=== PATIENT | female | born 1980 | race Caucasian/White ===

== ENCOUNTER 2017-12-20 17:54 | Emergency (ER) | payer OTHER ==
[~2017-12-20] VITALS: Ht 170.2 cm; Wt 104.3 kg
[~2017-12-20 17:54] MED LIST: ACYC400 PO; ALBU90OI INH; AMOCLA875 PO; BUDE6HFA INH; CEPH500 PO; CYCL10 PO; DIPATR PO; FLUO10 PO; Flonase 0.05% N16 GM; HYDACE5 PO; IBUP800 PO; LEVFLO500 PO; LOPE2C; LORA1 PO; MECL12.5 PO; Macrobid 100 M100 MG PO; OXYACE5T PO; PARO25; PROM25 PO; PROZAC 20 MG PO; PSEU120ER PO; Prednisone20 MG PO; Sudogest60 MG PO; TRAM50 PO; Zithromax250 MG PO; Zofran Odt4 MG SL
== END 2017-12-20 18:50 | disposition home or self-care (01) ==
LOC: ER 17:54
DX: M54.2 Cervicalgia (principal); Z91.048 Other nonmedicinal substance allergy status; Z90.710 Acquired absence of both cervix and uterus; Z90.89 Acquired absence of other organs
CPT/HCPCS: 99282

== ENCOUNTER 2018-03-21 19:52 | Emergency (ER) | payer OTHER ==
[~2018-03-21] VITALS: Ht 170.2 cm; Wt 104.3 kg
[2018-03-21 20:17] LABS: BASOPHILS ABSOLUTE AUTO 0.08 K/mm3 (0.00-0.23); BASOPHILS PERCENT AUTO 1 % (0-2); EOSINOPHILS ABSOLUTE AUTO 0.14 K/mm3 (0.00-0.68); EOSINOPHILS PERCENT AUTO 1 % (0-6); Hematocrit 42.7 % (33.0-51.0); Hemoglobin 13.8 g/dL (11.5-16.0); IMMATURE GRAN ABSOLUTE AUTO 0.02 K/mm3 (0.00-0.10); IMMATURE GRAN PERCENT AUTO 0 % (0-1); LYMPHOCYTES ABSOLUTE AUTO 3.86 K/mm3 (0.84-5.20); LYMPHOCYTES PERCENT AUTO 34 % (21-46); MONOCYTES ABSOLUTE AUTO 0.62 K/mm3 (0.16-1.47); MONOCYTES PERCENT AUTO 5 % (4-13); Mean Corpuscular HGB 29.1 pg (26.0-34.0); Mean Corpuscular HGB Conc 32.3 g/dL (31.5-36.5); Mean Corpuscular Volume 90 fL (80-100); Mean Platelet Volume 9.3 fL (9.1-12.4); NEUTROPHILS ABSOLUTE AUTO 6.78 K/mm3 (1.96-9.15); NEUTROPHILS PERCENT AUTO 59 % (41-73); Platelet Count 335 K/mm3 (150-400); RDW Coefficient Variation 12.5 % (11.7-14.2); RDW Standard Deviation 41.1 fL (35.1-46.3); Red Blood Cell Count 4.75 M/mm3 (3.80-5.20)
[2018-03-21 20:59] LABS: Alanine Aminotransfer (ALT/SGP 20 U/L (12-78); Albumin, Blood 3.2 g/dL (3.4-5.0); Albumin/Globulin Ratio 0.8 (0.8-1.8); Alk Phos 64 U/L (50-136); Anion Gap 6 mmol/L (6-16); Aspartate Aminotrans (AST/SGOT 18 U/L (12-37); Bilirubin, Total 0.4 mg/dL (0.1-1.0); Blood Urea Nitrogen 9 mg/dL (8-24); Bun/Creatinine Ratio 10.7 (12.0-20.0); CO2, Blood 25 mmol/L (21-32); Calcium, Blood 8.4 mg/dL (8.5-10.1); Chloride, Blood 111 mmol/L (98-108); Creatinine, Blood 0.84 mg/dL (0.40-1.00); Globulin, Blood 3.8 g/dL (2.2-4.0); Glomerular Filtration Rate >60 (60-); Glucose, Blood 70 mg/dL (70-99); Potassium, Blood 3.5 mmol/L (3.5-5.5); Sodium, Blood 142 mmol/L (136-145); Troponin I <0.015 ng/mL (0.000-0.040)
[2018-03-21] MEDS ORDERED: Protonix40 MG PO (21:49)
== END 2018-03-22 01:38 | disposition home or self-care (01) ==
LOC: ER 19:52
PROVIDERS: Emergency Medicine
DX: R07.89 Other chest pain (principal); Z91.048 Other nonmedicinal substance allergy status; Z79.899 Other long term (current) drug therapy; Z87.01 Personal history of pneumonia (recurrent)
CPT/HCPCS: 36415; 74177; 80053; 81000; 83690; 84484; 85025; 93005; 93010; 96374; 96375; 99284; J2060; J3010; Q9967

== ENCOUNTER 2019-01-09 17:09 | Emergency (ER) | payer OTHER ==
[~2019-01-09] VITALS: Ht 170.2 cm; Wt 106.6 kg
[~2019-01-09 17:09] MED LIST changes: +Protonix40 MG PO
[2019-01-09] MEDS ORDERED: Norco 5-325 Ta1 EACH PO (18:32)
== END 2019-01-09 18:45 | disposition home or self-care (01) ==
LOC: ER 17:09
DX: R51 Headache (principal); J45.909 Unspecified asthma, uncomplicated; Z87.01 Personal history of pneumonia (recurrent)
CPT/HCPCS: 70450; 99284-25

== ENCOUNTER 2019-12-23 21:06 | Emergency (ER) | payer OTHER ==
[~2019-12-23] VITALS: Ht 170.2 cm; Wt 104.3 kg
[~2019-12-23 21:06] MED LIST changes: +Norco 5-325 Ta1 EACH PO
[2019-12-24] MEDS ORDERED: Excedrin Extra1 EACH (00:15)
== END 2019-12-24 02:36 | disposition home or self-care (01) ==
LOC: ER 21:06
DX: R51 Headache (principal); Z91.018 Allergy to other foods; Z79.899 Other long term (current) drug therapy
CPT/HCPCS: 96374; 96375; 99283; J1200; J1885; J2765; J7030

== ENCOUNTER → 2021-12-30 | Outpatient (CLI) | payer BC, OTHER ==
[~2021-12-30] MED LIST changes: +ALBU2.5V5 INH; +DEXA6 PO; +Excedrin Extra1 EACH; +PRED20 PO; +Pulmicort Fle180 MCG INH; +Ventolin/Prove6.7 GM
[2021-12-30 18:49] LABS: BASOPHILS ABSOLUTE AUTO 0.07 K/mm3 (0.00-0.23); BASOPHILS PERCENT AUTO 1 % (0-2); EOSINOPHILS ABSOLUTE AUTO 0.13 K/mm3 (0.00-0.68); EOSINOPHILS PERCENT AUTO 1 % (0-6); Hematocrit 42.6 % (33.0-51.0); Hemoglobin 14.2 g/dL (11.5-16.0); IMMATURE GRAN ABSOLUTE AUTO 0.03 K/mm3 (0.00-0.10); IMMATURE GRAN PERCENT AUTO 0 % (0-1); LYMPHOCYTES ABSOLUTE AUTO 2.96 K/mm3 (0.84-5.20); LYMPHOCYTES PERCENT AUTO 29 % (21-46); MONOCYTES ABSOLUTE AUTO 0.61 K/mm3 (0.16-1.47); MONOCYTES PERCENT AUTO 6 % (4-13); Mean Corpuscular HGB 29.3 pg (26.0-34.0); Mean Corpuscular HGB Conc 33.3 g/dL (31.5-36.5); Mean Corpuscular Volume 88 fL (80-100); Mean Platelet Volume 9.3 fL (9.1-12.4); NEUTROPHILS PERCENT AUTO 63 % (41-73); Platelet Count 343 K/mm3 (150-400); RDW Coefficient Variation 13.2 % (11.7-14.2); RDW Standard Deviation 42.6 fL (35.1-46.3); Red Blood Cell Count 4.85 M/mm3 (3.80-5.20)
[2021-12-30 19:02] LABS: Alanine Aminotransfer (ALT/SGP 20 U/L (12-78); Albumin, Blood 3.6 g/dL (3.4-5.0); Albumin/Globulin Ratio 1.2 (0.8-1.8); Alk Phos 71 U/L (40-126); Anion Gap 10 mmol/L (6-16); Aspartate Aminotrans (AST/SGOT 13 U/L (12-37); Bilirubin, Total 0.6 mg/dL (0.1-1.0); Blood Urea Nitrogen 10 mg/dL (8-24); Bun/Creatinine Ratio 12.2 (12.0-20.0); CO2, Blood 27 mmol/L (21-32); Calcium, Blood 8.8 mg/dL (8.5-10.1); Chloride, Blood 107 mmol/L (98-108); Creatinine, Blood 0.82 mg/dL (0.40-1.00); Glomerular Filtration Rate >60 (60-); Glucose, Blood 79 mg/dL (70-99); Potassium, Blood 3.6 mmol/L (3.5-5.5); Sodium, Blood 144 mmol/L (136-145); Total Protein, Blood 6.6 g/dL (6.4-8.2)
== END ==
LOC: LAB SHORT 18:44
PROVIDERS: Physician Assistant Medical
DX: R10.9 Unspecified abdominal pain (principal)
CPT/HCPCS: 80053; 85025

== ENCOUNTER 2022-03-05 07:30 | Day surgery (SDC) | payer BC, OTHER ==
[~2022-03-05] VITALS: Ht 170.2 cm; Wt 109.5 kg
--- NOTE | 2022-03-05 08:16 | NUR ---
Ambulatory in [facility] warming gown applied. Patient states colon prep results clear. History, Chart, Medications and Allergies reviewed before start of procedure.Lungs clear T/O to Auscultation. Patient confirms NPO status and agrees with scheduled surgery. Pre-Op teaching done. Pt verbalizes understanding. Patient States Post-Procedure ride home has been arranged.
--- NOTE | 2022-03-05 08:41 | NUR ---
03/05/22 0841 Ashley Ritter History, Chart, Medications and Allergies reviewed before start of procedure. Patient confirms NPO status and agrees with scheduled surgery. 3-LEAD EKG REVIEWED WITH PHYSICIAN PRIOR TO START OF PROCEDURE. MONITOR INTACT WITH CONTINUOUS PULSE OXIMETRY AND INTERMITTENT BP. PATIENT DETERMINED TO BE ASA APPROPRIATE FOR PROPOFOL SEDATION PRIOR TO START OF PROCEDURE BY DR. KAT.
--- NOTE | 2022-03-05 09:40 | NUR ---
Patient up to Ambulate independently. Gait steady. Discharge instructions reviewed with patient. Patient verbalizes understanding. Copy given to patient to take home. Patient States Post-Procedure ride home has been arranged with Riki. Discharged via wheelchair to private car for ride home.
== END 2022-03-05 09:43 | disposition home or self-care (01) ==
LOC: ORSCMMR 07:30 → ORD 08:30 → ORSCMMR 08:30
PROVIDERS: Surgery
PROC: 0DJD8ZZ Inspection of Lower Intestinal Tract, Via Natural or Artificial Opening Endoscopic (ICD-10-PCS; principal; 2022-03-05 08:30)
DX: Z12.11 Encounter for screening for malignant neoplasm of colon (principal); Z86.010 Personal history of colon polyps; F41.9 Anxiety disorder, unspecified; E66.9 Obesity, unspecified; Z68.38 Body mass index [BMI] 38.0-38.9, adult
CPT/HCPCS: J2704; J7120

== ENCOUNTER 2022-06-01 08:22 | Day surgery (SDC) | payer BC, OTHER ==
[~2022-06-01] VITALS: Ht 170.2 cm; Wt 109.5 kg
[2022-06-01] MEDS ORDERED: ALBU90OI (09:11)
--- NOTE | 2022-06-01 10:09 | NUR ---
06/01/22 1009 RAMIRO HANNA COMPLETED BEFORE THE START OF THE CASE BY DR. MCCANN.
== END 2022-06-01 11:57 | disposition home or self-care (01) ==
LOC: ORSCSDS 08:22
PROVIDERS: Orthopaedic Surgery
PROC: 01N50ZZ Release Median Nerve, Open Approach (ICD-10-PCS; principal; 2022-06-01 09:45)
DX: G56.02 Carpal tunnel syndrome, left upper limb (principal); J45.909 Unspecified asthma, uncomplicated; E66.9 Obesity, unspecified; Z68.38 Body mass index [BMI] 38.0-38.9, adult; Z79.899 Other long term (current) drug therapy
CPT/HCPCS: J0690; J1885; J2250; J2704; J3010

== ENCOUNTER → 2023-07-06 | Outpatient (CLI) | payer OTHER ==
[~2023-07-06] MED LIST changes: +ALBU90OI
[2023-07-06 17:06] LABS: BASOPHILS ABSOLUTE AUTO 0.11 K/mm3 (0.00-0.23); BASOPHILS PERCENT AUTO 1 % (0-2); EOSINOPHILS ABSOLUTE AUTO 0.15 K/mm3 (0.00-0.68); EOSINOPHILS PERCENT AUTO 1 % (0-6); Hematocrit 43.7 % (33.0-51.0); Hemoglobin 14.3 g/dL (11.5-16.0); IMMATURE GRAN ABSOLUTE AUTO 0.04 K/mm3 (0.00-0.10); IMMATURE GRAN PERCENT AUTO 0 % (0-1); LYMPHOCYTES ABSOLUTE AUTO 2.77 K/mm3 (0.84-5.20); LYMPHOCYTES PERCENT AUTO 22 % (21-46); MONOCYTES ABSOLUTE AUTO 0.67 K/mm3 (0.16-1.47); MONOCYTES PERCENT AUTO 5 % (4-13); Mean Corpuscular HGB 29.2 pg (26.0-34.0); Mean Corpuscular HGB Conc 32.7 g/dL (31.5-36.5); Mean Corpuscular Volume 89 fL (80-100); Mean Platelet Volume 9.5 fL (9.1-12.4); NEUTROPHILS ABSOLUTE AUTO 9.11 K/mm3 (1.96-9.15); NEUTROPHILS PERCENT AUTO 71 % (41-73); Platelet Count 381 K/mm3 (150-400); RDW Coefficient Variation 12.7 % (11.7-14.2); RDW Standard Deviation 41.7 fL (35.1-46.3); White Blood Cell Count 12.85 K/mm3 (4.00-11.30)
[2023-07-06 18:09] LABS: Free Thyroxine 0.83 ng/dL (0.70-1.60); Percent Saturation 20.2 % (15.0-50.0)
[2023-07-06 18:11] LABS: Thyroid Stimulating Hormone 2.14 uIU/mL (0.360-4.800)
== END | disposition home or self-care (01) ==
LOC: LAB SHORT 15:48 → LAB 15:48
PROVIDERS: Family Medicine
DX: R53.83 Other fatigue (principal); Z68.39 Body mass index [BMI] 39.0-39.9, adult
CPT/HCPCS: 82728; 83540; 83550; 84439; 84443; 85025

== ENCOUNTER 2023-09-14 08:53 | Day surgery (SDC) | payer OTHER ==
[2023-09-14] VITALS (7 sets, daily range): BP systolic 132–149; BP diastolic 95–109
[~2023-09-14] VITALS: Ht 170.2 cm; Wt 116.1 kg
[~2023-09-14 08:53] MED LIST changes: -ALBU90OI; +Adipex-P37.5 M1 PO; +ESCI10 PO; +HYDROCHLOROTH12.5 MG PO; +LOSA25 PO; +Triamcinolone A15 G3 TOP
[2023-09-14 09:54] LABS: BASOPHILS ABSOLUTE AUTO 0.08 K/mm3 (0.00-0.23); BASOPHILS PERCENT AUTO 1 % (0-2); EOSINOPHILS PERCENT AUTO 1 % (0-6); Hematocrit 46.2 % (33.0-51.0); IMMATURE GRAN ABSOLUTE AUTO 0.03 K/mm3 (0.00-0.10); IMMATURE GRAN PERCENT AUTO 0 % (0-1); LYMPHOCYTES ABSOLUTE AUTO 2.13 K/mm3 (0.84-5.20); LYMPHOCYTES PERCENT AUTO 27 % (21-46); MONOCYTES ABSOLUTE AUTO 0.59 K/mm3 (0.16-1.47); MONOCYTES PERCENT AUTO 8 % (4-13); Mean Corpuscular HGB 28.6 pg (26.0-34.0); Mean Corpuscular HGB Conc 32.5 g/dL (31.5-36.5); Mean Corpuscular Volume 88 fL (80-100); Mean Platelet Volume 9.4 fL (9.1-12.4); NEUTROPHILS ABSOLUTE AUTO 4.92 K/mm3 (1.96-9.15); NEUTROPHILS PERCENT AUTO 63 % (41-73); Platelet Count 346 K/mm3 (150-400); RDW Coefficient Variation 13.2 % (11.7-14.2); RDW Standard Deviation 42.6 fL (35.1-46.3); Red Blood Cell Count 5.24 M/mm3 (3.80-5.20); White Blood Cell Count 7.85 K/mm3 (4.00-11.30)
[2023-09-14 10:18] LABS: Bun/Creatinine Ratio 14.9 (12.0-20.0); Calcium, Blood 8.4 mg/dL (8.5-10.1); Creatinine, Blood 1.01 mg/dL (0.40-1.00); Potassium, Blood 3.6 mmol/L (3.5-5.5)
--- NOTE | 2023-09-14 13:30 | NUR ---
PT AND S/O VERBALIZES UNDERSTANDING WRITTEN INSTRUCTIONS. DENIES QUESTIONS. VSS. ALLEGRAN. PT SITE REMAINS C/DI.
--- NOTE | 2023-09-14 13:50 | NUR ---
PT IV DC'D. CATH INTACT. PRESSURE DSG APPLIED. PT DRESSES SELF WITHOUT DIFF. PT L FLANK SITE REMAINS C/D/I. PT DC TO HOME VIA S/O VIA WC
== END 2023-09-14 13:52 | disposition home or self-care (01) ==
LOC: MHTC 08:53
PROVIDERS: Radiology Diagnostic Radiology
DX: N28.1 Cyst of kidney, acquired (principal)
CPT/HCPCS: 49185; 49405; 76937; 80048; 85025; 99152; 99153; C1894; J2250; J3010; J7030; J7050; Q9967

== ENCOUNTER → 2025-01-24 | Outpatient (CLI) | payer OTHER ==
[2025-01-24 14:22] LABS: BASOPHILS ABSOLUTE AUTO 0.05 K/mm3 (0.00-0.23); BASOPHILS PERCENT AUTO 1 % (0-2); EOSINOPHILS ABSOLUTE AUTO 0.15 K/mm3 (0.00-0.68); EOSINOPHILS PERCENT AUTO 2 % (0-6); Hematocrit 37.3 % (33.0-51.0); Hemoglobin 12.7 g/dL (11.5-16.0); IMMATURE GRAN ABSOLUTE AUTO 0.03 K/mm3 (0.00-0.10); IMMATURE GRAN PERCENT AUTO 0 % (0-1); LYMPHOCYTES ABSOLUTE AUTO 1.87 K/mm3 (0.84-5.20); LYMPHOCYTES PERCENT AUTO 19 % (21-46); MONOCYTES ABSOLUTE AUTO 0.81 K/mm3 (0.16-1.47); MONOCYTES PERCENT AUTO 8 % (4-13); Mean Corpuscular HGB 28.1 pg (26.0-34.0); Mean Corpuscular Volume 83 fL (80-100); Mean Platelet Volume 11.6 fL (9.1-12.4); NEUTROPHILS ABSOLUTE AUTO 6.74 K/mm3 (1.96-9.15); NEUTROPHILS PERCENT AUTO 70 % (41-73); Platelet Count 256 K/mm3 (150-400); RDW Coefficient Variation 15.6 % (11.7-14.2); RDW Standard Deviation 46.1 fL (35.1-46.3); Red Blood Cell Count 4.52 M/mm3 (3.80-5.20); White Blood Cell Count 9.65 K/mm3 (4.00-11.30)
[2025-01-24 14:27] LABS: Albumin, Blood 3.2 g/dL (3.4-5.0); Albumin/Globulin Ratio 1.1 (0.8-1.8); Bilirubin, Total 0.7 mg/dL (0.1-1.0); Bun/Creatinine Ratio 6.7 (12.0-20.0); Calcium, Blood 8.5 mg/dL (8.5-10.1); Creatinine, Blood 0.89 mg/dL (0.40-1.00); Globulin, Blood 2.8 g/dL (2.2-4.0); Potassium, Blood 2.9 mmol/L (3.5-5.5)
== END ==
LOC: LAB 14:09 → LAB SHORT 14:09
PROVIDERS: Physician Assistant
DX: E87.6 Hypokalemia (principal)
CPT/HCPCS: 80053; 85025

== ENCOUNTER → 2025-02-05 | Outpatient (CLI) | payer OTHER ==
[2025-02-05 14:57] LABS: Bun/Creatinine Ratio 5.6 (12.0-20.0); Calcium, Blood 8.5 mg/dL (8.5-10.1); Creatinine, Blood 0.89 mg/dL (0.40-1.00); Potassium, Blood 3.1 mmol/L (3.5-5.5)
== END ==
LOC: LAB SHORT 14:10 → LAB 14:10
PROVIDERS: Family Medicine
DX: E87.6 Hypokalemia (principal); R63.8 Other symptoms and signs concerning food and fluid intake
CPT/HCPCS: 80048; 83735

== ENCOUNTER 2025-02-09 19:20 | Emergency (ER) | payer OTHER ==
[~2025-02-09] VITALS: Ht 170.2 cm; Wt 104.3 kg
[2025-02-09] MEDS ORDERED: Ondansetron HCl 2 MG / ML 2ML Vial IV ONE (19:45)
[2025-02-09 19:56] LABS: BASOPHILS ABSOLUTE AUTO 0.06 K/mm3 (0.00-0.23); BASOPHILS PERCENT AUTO 1 % (0-2); EOSINOPHILS ABSOLUTE AUTO 0.15 K/mm3 (0.00-0.68); EOSINOPHILS PERCENT AUTO 2 % (0-6); Hematocrit 42.6 % (33.0-51.0); Hemoglobin 14.5 g/dL (11.5-16.0); IMMATURE GRAN ABSOLUTE AUTO 0.03 K/mm3 (0.00-0.10); IMMATURE GRAN PERCENT AUTO 0 % (0-1); LYMPHOCYTES ABSOLUTE AUTO 2.11 K/mm3 (0.84-5.20); LYMPHOCYTES PERCENT AUTO 22 % (21-46); MONOCYTES PERCENT AUTO 6 % (4-13); Mean Corpuscular HGB 28.5 pg (26.0-34.0); Mean Corpuscular Volume 84 fL (80-100); Mean Platelet Volume 10.8 fL (9.1-12.4); NEUTROPHILS ABSOLUTE AUTO 6.68 K/mm3 (1.96-9.15); NEUTROPHILS PERCENT AUTO 69 % (41-73); Platelet Count 298 K/mm3 (150-400); RDW Coefficient Variation 15.9 % (11.7-14.2); Red Blood Cell Count 5.08 M/mm3 (3.80-5.20); White Blood Cell Count 9.63 K/mm3 (4.00-11.30)
[2025-02-09 20:14] LABS: Albumin, Blood 3.1 g/dL (3.4-5.0); Albumin/Globulin Ratio 0.9 (0.8-1.8); Bilirubin, Total 0.6 mg/dL (0.1-1.0); Bun/Creatinine Ratio 7.5 (12.0-20.0); Calcium, Blood 8.7 mg/dL (8.5-10.1); Creatinine, Blood 0.67 mg/dL (0.40-1.00); Globulin, Blood 3.5 g/dL (2.2-4.0); Potassium, Blood 2.8 mmol/L (3.5-5.5); Total Protein, Blood 6.6 g/dL (6.4-8.2)
[2025-02-09] MEDS ORDERED: Potassium Chloride 40 MEQ in NS 250 ML IV ONE (20:25)
[2025-02-09] MEDS ORDERED: DiphenhydrAMINE HCl 50 MG/ML 1ML Vial IV ONE (20:25)
[2025-02-09] MEDS ORDERED: Mag Sulfate 1 GM/D5% 100ML 100 ML IV ONE (20:25)
[2025-02-09] MEDS ORDERED: Metoclopramide HCl 5MG / ML 2ML Vial IV ONE (20:25)
[2025-02-09] MEDS ORDERED: NS 1,000 ML IV SCH (20:25)
[2025-02-09 22:02] LABS: Calcium, Blood 8.2 mg/dL (8.5-10.1); Creatinine, Blood 0.71 mg/dL (0.40-1.00); Potassium, Blood 2.7 mmol/L (3.5-5.5)
[2025-02-10 00:16] LABS: Bun/Creatinine Ratio 7.6 (12.0-20.0); Calcium, Blood 7.7 mg/dL (8.5-10.1); Creatinine, Blood 0.66 mg/dL (0.40-1.00); Potassium, Blood 2.8 mmol/L (3.5-5.5)
[2025-02-10] MEDS ORDERED: Potassium Phosphate Dibasic 30 MM in Dextrose 5% 500 ML IV ONE (00:35)
[2025-02-10 01:04] LABS: Magnesium, Blood 2.1 mg/dL (1.6-2.4); Phosphorus, Blood 1.8 mg/dL (2.5-4.9)
[2025-02-10 07:30] VITALS: BP 113/80
== END 2025-02-10 07:49 | disposition home or self-care (01) ==
LOC: ER 19:20
PROVIDERS: Emergency Medicine; Physician Assistant
DX: E87.6 Hypokalemia (principal); I10 Essential (primary) hypertension; Z79.899 Other long term (current) drug therapy; Z91.048 Other nonmedicinal substance allergy status
CPT/HCPCS: 80048; 80053; 83735; 84100; 85025; 96365; 96366; 96367; 96368; 96375; 99283-25; J1200; J2405; J2765; J3475; J3480; J7030; J7050; J7060

== ENCOUNTER 2025-02-17 03:01 | Day surgery (SDC) | payer OTHER ==
[2025-02-17] MEDS ORDERED: Lactated Ringer's 1,000 ML IV SCH (06:00)
[2025-02-17 13:04] VITALS: BP 115/77
== END 2025-02-17 17:25 | disposition home or self-care (01) ==
LOC: ATC 03:01
DX: E86.0 Dehydration (principal); E87.6 Hypokalemia; E66.812 Obesity, class 2; K21.9 Gastro-esophageal reflux disease without esophagitis; J45.909 Unspecified asthma, uncomplicated; I12.9 Hypertensive chronic kidney disease with stage 1 through stage 4 chronic kidney disease, or unspecified chronic kidney disease; N18.2 Chronic kidney disease, stage 2 (mild); Z68.36 Body mass index [BMI] 36.0-36.9, adult; Z88.8 Allergy status to other drugs, medicaments and biological substances
CPT/HCPCS: 96365; 96366; J3480; J7040; J7120

== ENCOUNTER 2025-02-20 03:54 | Day surgery (SDC) | payer OTHER ==
[2025-02-20] MEDS ORDERED: Lactated Ringer's 1,000 ML IV SCH (07:00)
[2025-02-20 08:14] VITALS: BP 125/78
== END 2025-02-20 11:25 | disposition home or self-care (01) ==
LOC: ATC 03:54
DX: E86.0 Dehydration (principal); E87.6 Hypokalemia; E66.812 Obesity, class 2; K21.9 Gastro-esophageal reflux disease without esophagitis; J45.909 Unspecified asthma, uncomplicated; I10 Essential (primary) hypertension; I12.9 Hypertensive chronic kidney disease with stage 1 through stage 4 chronic kidney disease, or unspecified chronic kidney disease; N18.2 Chronic kidney disease, stage 2 (mild); Z68.36 Body mass index [BMI] 36.0-36.9, adult; Z79.899 Other long term (current) drug therapy
CPT/HCPCS: 96365; 96366; J3480; J7040; J7120

== ENCOUNTER 2025-02-24 02:23 | Day surgery (SDC) | payer OTHER ==
[2025-02-24] MEDS ORDERED: Lactated Ringer's 1,000 ML IV SCH (06:00)
[2025-02-24] MEDS ORDERED: Potassium Chloride 40 MEQ in NS 250 ML IV SCH (06:00)
[2025-02-24 13:35] VITALS: BP 122/87
== END 2025-02-24 19:03 | disposition home or self-care (01) ==
LOC: ATC 02:23
DX: E87.6 Hypokalemia (principal); E86.0 Dehydration; I12.9 Hypertensive chronic kidney disease with stage 1 through stage 4 chronic kidney disease, or unspecified chronic kidney disease; N18.2 Chronic kidney disease, stage 2 (mild); K21.9 Gastro-esophageal reflux disease without esophagitis; J45.909 Unspecified asthma, uncomplicated; G47.30 Sleep apnea, unspecified; E66.01 Morbid (severe) obesity due to excess calories; E66.812 Obesity, class 2; Z68.36 Body mass index [BMI] 36.0-36.9, adult; Z79.899 Other long term (current) drug therapy; Z91.018 Allergy to other foods; Z91.048 Other nonmedicinal substance allergy status; Z90.49 Acquired absence of other specified parts of digestive tract; Z90.710 Acquired absence of both cervix and uterus
CPT/HCPCS: 96365; 96366; C1751; J3480; J7050; J7120

== ENCOUNTER 2025-02-27 02:39 | Day surgery (SDC) | payer OTHER ==
[2025-02-27] MEDS ORDERED: Lactated Ringer's 1,000 ML IV SCH (07:00)
[2025-02-27] MEDS ORDERED: Potassium Chloride 40 MEQ in NS 250 ML IV SCH (07:05)
[2025-02-27 07:22] VITALS: BP 117/87
== END 2025-02-27 11:52 | disposition home or self-care (01) ==
LOC: ATC 02:39
DX: E87.6 Hypokalemia (principal); E86.0 Dehydration; E66.812 Obesity, class 2; E66.01 Morbid (severe) obesity due to excess calories; I12.9 Hypertensive chronic kidney disease with stage 1 through stage 4 chronic kidney disease, or unspecified chronic kidney disease; N18.2 Chronic kidney disease, stage 2 (mild); G47.30 Sleep apnea, unspecified; J45.909 Unspecified asthma, uncomplicated; K21.9 Gastro-esophageal reflux disease without esophagitis; Z79.899 Other long term (current) drug therapy
CPT/HCPCS: 96361; 96365; 96366; J3480; J7050; J7120

== ENCOUNTER 2025-03-03 00:51 | Day surgery (SDC) | payer OTHER ==
[2025-03-03] MEDS ORDERED: Potassium Chloride 40 MEQ in NS 250 ML IV SCH (06:00)
[2025-03-03] MEDS ORDERED: Lactated Ringer's 1,000 ML IV SCH (07:20)
[2025-03-03 13:10] VITALS: BP 127/90
== END 2025-03-03 17:18 | disposition home or self-care (01) ==
LOC: ATC 00:51
DX: E87.6 Hypokalemia (principal); E86.0 Dehydration; I12.9 Hypertensive chronic kidney disease with stage 1 through stage 4 chronic kidney disease, or unspecified chronic kidney disease; N18.2 Chronic kidney disease, stage 2 (mild); K21.9 Gastro-esophageal reflux disease without esophagitis; G47.30 Sleep apnea, unspecified; J45.909 Unspecified asthma, uncomplicated; E66.812 Obesity, class 2; Z68.36 Body mass index [BMI] 36.0-36.9, adult; Z79.899 Other long term (current) drug therapy; Z91.018 Allergy to other foods; Z91.09 Other allergy status, other than to drugs and biological substances; Z90.49 Acquired absence of other specified parts of digestive tract
CPT/HCPCS: 96365; 96366; J3480; J7050; J7120

== ENCOUNTER 2025-03-06 04:14 | Day surgery (SDC) | payer OTHER ==
[~2025-03-06 04:14] MED LIST changes: +Lactated Ringer's 1,000 ML IV SCH; +Potassium Chloride 40 MEQ in NS 250 ML IV SCH
[2025-03-06 07:42] VITALS: BP 116/85
== END 2025-03-06 12:15 | disposition home or self-care (01) ==
LOC: ATC 04:14
DX: E87.6 Hypokalemia (principal); E86.0 Dehydration; E66.812 Obesity, class 2; J45.909 Unspecified asthma, uncomplicated; K21.9 Gastro-esophageal reflux disease without esophagitis; I12.9 Hypertensive chronic kidney disease with stage 1 through stage 4 chronic kidney disease, or unspecified chronic kidney disease; N18.2 Chronic kidney disease, stage 2 (mild); Z68.36 Body mass index [BMI] 36.0-36.9, adult
CPT/HCPCS: 96365; 96366; J3480; J7050; J7120

== ENCOUNTER 2025-03-10 04:14 | Day surgery (SDC) | payer OTHER ==
[~2025-03-10 04:14] MED LIST changes: -Lactated Ringer's 1,000 ML IV SCH; -Potassium Chloride 40 MEQ in NS 250 ML IV SCH
[2025-03-10] MEDS ORDERED: Potassium Chloride 40 MEQ in NS 250 ML IV SCH (06:00)
[2025-03-10] MEDS ORDERED: Lactated Ringer's 1,000 ML IV SCH (07:15)
[2025-03-10 13:10] VITALS: BP 137/89
== END 2025-03-10 17:18 | disposition home or self-care (01) ==
LOC: ATC 04:14
DX: E87.6 Hypokalemia (principal); E86.0 Dehydration; E66.812 Obesity, class 2; E66.01 Morbid (severe) obesity due to excess calories; Z68.36 Body mass index [BMI] 36.0-36.9, adult; K21.9 Gastro-esophageal reflux disease without esophagitis; I12.9 Hypertensive chronic kidney disease with stage 1 through stage 4 chronic kidney disease, or unspecified chronic kidney disease; N18.2 Chronic kidney disease, stage 2 (mild); G47.30 Sleep apnea, unspecified; J45.909 Unspecified asthma, uncomplicated; Z79.899 Other long term (current) drug therapy
CPT/HCPCS: 96365; 96366; J3480; J7050; J7120

== ENCOUNTER 2025-03-13 07:21 | Day surgery (SDC) | payer OTHER ==
[2025-03-13 07:21] VITALS: BP 120/86
[~2025-03-13 07:21] MED LIST changes: +Lactated Ringer's 1,000 ML IV SCH; +Potassium Chloride 40 MEQ in NS 250 ML IV SCH
== END 2025-03-13 11:56 | disposition home or self-care (01) ==
LOC: ATC 07:21
DX: E86.0 Dehydration (principal); E87.6 Hypokalemia; E66.812 Obesity, class 2; Z68.36 Body mass index [BMI] 36.0-36.9, adult; Z79.899 Other long term (current) drug therapy; Z88.8 Allergy status to other drugs, medicaments and biological substances
CPT/HCPCS: 96365; 96366; J3480; J7050; J7120

== ENCOUNTER 2025-03-17 03:59 | Day surgery (SDC) | payer OTHER ==
[~2025-03-17 03:59] MED LIST changes: -Lactated Ringer's 1,000 ML IV SCH; -Potassium Chloride 40 MEQ in NS 250 ML IV SCH
[2025-03-17] MEDS ORDERED: Potassium Chloride 40 MEQ in NS 250 ML IV SCH (06:00)
[2025-03-17] MEDS ORDERED: Lactated Ringer's 1,000 ML IV SCH (06:00)
[2025-03-17 13:12] VITALS: BP 129/97
== END 2025-03-17 17:53 | disposition home or self-care (01) ==
LOC: ATC 03:59
DX: E87.6 Hypokalemia (principal); E86.0 Dehydration; J45.909 Unspecified asthma, uncomplicated; K21.9 Gastro-esophageal reflux disease without esophagitis; I12.9 Hypertensive chronic kidney disease with stage 1 through stage 4 chronic kidney disease, or unspecified chronic kidney disease; N18.2 Chronic kidney disease, stage 2 (mild); E66.812 Obesity, class 2; E66.01 Morbid (severe) obesity due to excess calories; Z68.36 Body mass index [BMI] 36.0-36.9, adult; Z88.8 Allergy status to other drugs, medicaments and biological substances; Z79.899 Other long term (current) drug therapy
CPT/HCPCS: 96365; 96366; J3480; J7050; J7120

== ENCOUNTER 2025-03-20 04:10 | Day surgery (SDC) | payer OTHER ==
[2025-03-20] MEDS ORDERED: Lactated Ringer's 1,000 ML IV SCH (06:00)
[2025-03-20] MEDS ORDERED: Potassium Chloride 40 MEQ in NS 250 ML IV ONE (06:00)
[2025-03-20 07:35] VITALS: BP 115/89
[2025-03-20 08:09] LABS: Hematocrit 42.7 % (33.0-51.0); Hemoglobin 13.9 g/dL (11.5-16.0); Mean Corpuscular HGB 28.7 pg (26.0-34.0); Mean Corpuscular HGB Conc 32.6 g/dL (31.5-36.5); Mean Corpuscular Volume 88 fL (80-100); Mean Platelet Volume 10.5 fL (9.1-12.4); Platelet Count 338 K/mm3 (150-400); Red Blood Cell Count 4.85 M/mm3 (3.80-5.20); White Blood Cell Count 8.71 K/mm3 (4.00-11.30)
[2025-03-20 08:29] LABS: Albumin, Blood 2.9 g/dL (3.4-5.0); Albumin/Globulin Ratio 0.9 (0.8-1.8); Bun/Creatinine Ratio 8.7 (12.0-20.0); Calcium, Blood 8.8 mg/dL (8.5-10.1); Creatinine, Blood 0.69 mg/dL (0.40-1.00); Globulin, Blood 3.2 g/dL (2.2-4.0); Potassium, Blood 3.2 mmol/L (3.5-5.5); Total Protein, Blood 6.1 g/dL (6.4-8.2)
== END 2025-03-20 12:03 | disposition home or self-care (01) ==
LOC: ATC 04:10
PROVIDERS: Student in an Organized Health Care Education/Training Program
DX: E87.6 Hypokalemia (principal); J45.909 Unspecified asthma, uncomplicated; K21.9 Gastro-esophageal reflux disease without esophagitis; I12.9 Hypertensive chronic kidney disease with stage 1 through stage 4 chronic kidney disease, or unspecified chronic kidney disease; N18.2 Chronic kidney disease, stage 2 (mild); E66.812 Obesity, class 2; Z68.36 Body mass index [BMI] 36.0-36.9, adult; Z79.899 Other long term (current) drug therapy; Z91.018 Allergy to other foods; Z91.048 Other nonmedicinal substance allergy status
CPT/HCPCS: 80053; 85027; 96365; 96366; J3480; J7050; J7120

== ENCOUNTER 2025-03-24 02:42 | Day surgery (SDC) | payer OTHER ==
[2025-03-24] MEDS ORDERED: Potassium Chloride 40 MEQ in NS 250 ML IV SCH (07:00)
[2025-03-24] MEDS ORDERED: Lactated Ringer's 1,000 ML IV SCH (07:00)
[2025-03-24 13:01] VITALS: BP 111/81
== END 2025-03-24 17:07 | disposition home or self-care (01) ==
LOC: ATC 02:42
DX: E87.6 Hypokalemia (principal); E66.812 Obesity, class 2; Z68.36 Body mass index [BMI] 36.0-36.9, adult; I12.9 Hypertensive chronic kidney disease with stage 1 through stage 4 chronic kidney disease, or unspecified chronic kidney disease; N18.2 Chronic kidney disease, stage 2 (mild); J45.909 Unspecified asthma, uncomplicated; K21.9 Gastro-esophageal reflux disease without esophagitis; Z79.899 Other long term (current) drug therapy; Z91.018 Allergy to other foods; Z91.048 Other nonmedicinal substance allergy status
CPT/HCPCS: 96365; 96366; J3480; J7050; J7120

== ENCOUNTER 2025-03-26 05:41 | Day surgery (SDC) | payer OTHER ==
[2025-03-26] MEDS ORDERED: Potassium Chloride 40 MEQ in NS 250 ML IV SCH (06:00)
[2025-03-26] MEDS ORDERED: Lactated Ringer's 1,000 ML IV SCH (06:50)
[2025-03-26 08:25] VITALS: BP 109/98
== END 2025-03-26 12:40 | disposition home or self-care (01) ==
LOC: ATC 05:41
DX: E87.6 Hypokalemia (principal); E86.0 Dehydration; E66.812 Obesity, class 2; Z68.36 Body mass index [BMI] 36.0-36.9, adult
CPT/HCPCS: 96365; 96366; C1751; J3480; J7050; J7120

== ENCOUNTER 2025-04-03 03:45 | Day surgery (SDC) | payer OTHER ==
[2025-04-03] MEDS ORDERED: Lactated Ringer's 1,000 ML IV SCH (07:00)
[2025-04-03] MEDS ORDERED: Potassium Chloride 40 MEQ in NS 250 ML IV SCH (07:00)
[2025-04-03 08:42] VITALS: BP 124/79
== END 2025-04-03 12:21 | disposition home or self-care (01) ==
LOC: ATC 03:45
DX: E87.6 Hypokalemia (principal); E86.0 Dehydration; E66.812 Obesity, class 2; I12.9 Hypertensive chronic kidney disease with stage 1 through stage 4 chronic kidney disease, or unspecified chronic kidney disease; N18.2 Chronic kidney disease, stage 2 (mild); J45.909 Unspecified asthma, uncomplicated; K21.9 Gastro-esophageal reflux disease without esophagitis; G47.30 Sleep apnea, unspecified; Z68.36 Body mass index [BMI] 36.0-36.9, adult; Z98.84 Bariatric surgery status
CPT/HCPCS: 96365; 96366; J3480; J7050; J7120

== ENCOUNTER 2025-04-07 07:40 | Day surgery (SDC) | payer OTHER ==
[~2025-04-07 07:40] MED LIST changes: +Lactated Ringer's 1,000 ML IV SCH; +Potassium Chloride 40 MEQ in NS 250 ML IV SCH
[2025-04-07 07:45] VITALS: BP 123/88
[2025-04-07] MEDS ORDERED: KCL IV (08:11)
[2025-04-07] MEDS ORDERED: LR IV (08:11)
== END 2025-04-07 12:28 | disposition home or self-care (01) ==
LOC: ATC 07:40
DX: E87.6 Hypokalemia (principal); E86.0 Dehydration; E66.812 Obesity, class 2; E66.01 Morbid (severe) obesity due to excess calories; Z68.36 Body mass index [BMI] 36.0-36.9, adult; J45.909 Unspecified asthma, uncomplicated; K21.9 Gastro-esophageal reflux disease without esophagitis; I12.9 Hypertensive chronic kidney disease with stage 1 through stage 4 chronic kidney disease, or unspecified chronic kidney disease; N18.2 Chronic kidney disease, stage 2 (mild); G47.30 Sleep apnea, unspecified; Z79.899 Other long term (current) drug therapy
CPT/HCPCS: 96365; 96366; J3480; J7050; J7120

== ENCOUNTER 2025-04-09 00:55 | Day surgery (SDC) | payer OTHER ==
[~2025-04-09 00:55] MED LIST changes: +KCL IV; +LR IV; -Lactated Ringer's 1,000 ML IV SCH
[2025-04-09] MEDS ORDERED: Lactated Ringer's 1,000 ML IV SCH (07:20)
[2025-04-09 07:42] VITALS: BP 97/64
== END 2025-04-09 12:31 | disposition home or self-care (01) ==
LOC: ATC 00:55
DX: E87.6 Hypokalemia (principal); J45.909 Unspecified asthma, uncomplicated; K21.9 Gastro-esophageal reflux disease without esophagitis; I12.9 Hypertensive chronic kidney disease with stage 1 through stage 4 chronic kidney disease, or unspecified chronic kidney disease; N18.2 Chronic kidney disease, stage 2 (mild); E66.812 Obesity, class 2; Z68.36 Body mass index [BMI] 36.0-36.9, adult; Z79.899 Other long term (current) drug therapy; Z91.018 Allergy to other foods; Z91.048 Other nonmedicinal substance allergy status
CPT/HCPCS: 96365; 96366; J3480; J7050; J7120

== ENCOUNTER 2025-04-24 04:34 | Day surgery (SDC) | payer OTHER ==
[2025-04-24] MEDS ORDERED: Lactated Ringer's 1,000 ML IV SCH (07:20)
[2025-04-24 07:38] VITALS: BP 113/85
== END 2025-04-24 12:08 | disposition home or self-care (01) ==
LOC: ATC 04:34
DX: E87.6 Hypokalemia (principal); E86.0 Dehydration; E66.812 Obesity, class 2; Z68.36 Body mass index [BMI] 36.0-36.9, adult; Z79.899 Other long term (current) drug therapy; Z88.8 Allergy status to other drugs, medicaments and biological substances
CPT/HCPCS: 96365; 96366; J3480; J7050; J7120

== ENCOUNTER 2025-04-28 02:29 | Day surgery (SDC) | payer OTHER ==
[~2025-04-28 02:29] MED LIST changes: -Potassium Chloride 40 MEQ in NS 250 ML IV SCH
[2025-04-28] MEDS ORDERED: Potassium Chloride 40 MEQ in NS 250 ML IV SCH (06:00)
[2025-04-28] MEDS ORDERED: Lactated Ringer's 1,000 ML IV SCH (07:10)
[2025-04-28 07:56] VITALS: BP 125/92
== END 2025-04-28 12:23 | disposition home or self-care (01) ==
LOC: ATC 02:29
DX: E87.6 Hypokalemia (principal); E86.0 Dehydration; E66.812 Obesity, class 2; J45.909 Unspecified asthma, uncomplicated; K21.9 Gastro-esophageal reflux disease without esophagitis; I12.9 Hypertensive chronic kidney disease with stage 1 through stage 4 chronic kidney disease, or unspecified chronic kidney disease; N18.2 Chronic kidney disease, stage 2 (mild); Z68.36 Body mass index [BMI] 36.0-36.9, adult; Z79.899 Other long term (current) drug therapy
CPT/HCPCS: 96361; 96365; 96366; J3480; J7050; J7120

== ENCOUNTER 2025-05-19 01:32 | Day surgery (SDC) | payer OTHER ==
[~2025-05-19 01:32] MED LIST changes: +Potassium Chloride 40 MEQ in NS 250 ML IV SCH
[2025-05-19] MEDS ORDERED: Lactated Ringer's 1,000 ML IV SCH (06:50)
[2025-05-19 08:15] VITALS: BP 122/77
== END 2025-05-19 12:20 | disposition home or self-care (01) ==
LOC: ATC 01:32
DX: E87.6 Hypokalemia (principal); E86.0 Dehydration; E66.812 Obesity, class 2; Z68.36 Body mass index [BMI] 36.0-36.9, adult; Z79.899 Other long term (current) drug therapy
CPT/HCPCS: 96365; 96366; J3480; J7050; J7120

== ENCOUNTER 2025-05-22 03:11 | Day surgery (SDC) | payer OTHER ==
[~2025-05-22 03:11] MED LIST changes: -Potassium Chloride 40 MEQ in NS 250 ML IV SCH
[2025-05-22 08:16] VITALS: BP 123/87
== END 2025-05-22 12:21 | disposition home or self-care (01) ==
LOC: ATC 03:11
DX: E87.6 Hypokalemia (principal); E86.0 Dehydration; I12.9 Hypertensive chronic kidney disease with stage 1 through stage 4 chronic kidney disease, or unspecified chronic kidney disease; N18.2 Chronic kidney disease, stage 2 (mild); J45.909 Unspecified asthma, uncomplicated; K21.9 Gastro-esophageal reflux disease without esophagitis; E66.812 Obesity, class 2; Z68.36 Body mass index [BMI] 36.0-36.9, adult; Z79.899 Other long term (current) drug therapy; Z91.018 Allergy to other foods; Z91.048 Other nonmedicinal substance allergy status
CPT/HCPCS: 96365; 96366; J3480; J7050; J7120

== ENCOUNTER 2025-08-01 13:42 | Emergency (ER) | payer OTHER ==
[~2025-08-01] VITALS: Ht 170.2 cm; Wt 82.6 kg
[2025-08-01 15:20] LABS: BASOPHILS ABSOLUTE AUTO 0.07 K/mm3 (0.00-0.23); BASOPHILS PERCENT AUTO 1 % (0-2); EOSINOPHILS ABSOLUTE AUTO 0.09 K/mm3 (0.00-0.68); EOSINOPHILS PERCENT AUTO 1 % (0-6); Hematocrit 40.6 % (33.0-51.0); Hemoglobin 13.3 g/dL (11.5-16.0); IMMATURE GRAN ABSOLUTE AUTO 0.03 K/mm3 (0.00-0.10); IMMATURE GRAN PERCENT AUTO 0 % (0-1); LYMPHOCYTES ABSOLUTE AUTO 2.12 K/mm3 (0.84-5.20); LYMPHOCYTES PERCENT AUTO 24 % (21-46); MONOCYTES ABSOLUTE AUTO 0.53 K/mm3 (0.16-1.47); MONOCYTES PERCENT AUTO 6 % (4-13); Mean Corpuscular HGB Conc 32.8 g/dL (31.5-36.5); Mean Corpuscular Volume 90 fL (80-100); NEUTROPHILS ABSOLUTE AUTO 6.16 K/mm3 (1.96-9.15); NEUTROPHILS PERCENT AUTO 68 % (41-73); NRBC ABSOLUTE 0.00 K/mm3 (0.00-0.02); NRBC Auto 0.0 /100 WBC (0.0-0.2); Platelet Count 273 K/mm3 (150-400); RDW Coefficient Variation 12.5 % (11.7-14.2); RDW Standard Deviation 41.2 fL (35.1-46.3)
[2025-08-01 15:53] LABS: Magnesium, Blood 2.0 mg/dL (1.6-2.4)
[2025-08-01 15:54] LABS: Alanine Aminotransfer (ALT/SGP 23.0 U/L (12-78); Albumin, Blood 3.3 g/dL (3.4-5.0); Albumin/Globulin Ratio 1.1 (0.8-1.8); Anion Gap 6.0 mmol/L (3-11); Aspartate Aminotrans (AST/SGOT 18.0 U/L (12-37); Bilirubin, Total 0.7 mg/dL (0.1-1.0); Blood Urea Nitrogen 12.0 mg/dL (8-24); CO2, Blood 33.0 mmol/L (21-32); Calcium, Blood 8.8 mg/dL (8.5-10.1); Chloride, Blood 109.0 mmol/L (98-108); Creatinine, Blood 0.72 mg/dL (0.40-1.00); Globulin, Blood 2.9 g/dL (2.2-4.0); Glucose, Blood 80.0 mg/dL (70-99); Phosphorus, Blood 3.5 mg/dL (2.5-4.9); Potassium, Blood 3.7 mmol/L (3.5-5.5); Sodium, Blood 144.0 mmol/L (136-145); Total Protein, Blood 6.2 g/dL (6.4-8.2)
[2025-08-01 21:21] VITALS: BP 121/82
== END 2025-08-01 21:20 | disposition home or self-care (01) ==
LOC: ER 13:42
PROVIDERS: Physician Assistant
DX: F41.9 Anxiety disorder, unspecified (principal); R20.0 Anesthesia of skin; I10 Essential (primary) hypertension; Z98.84 Bariatric surgery status; Z91.018 Allergy to other foods; Z91.048 Other nonmedicinal substance allergy status; Z79.899 Other long term (current) drug therapy
CPT/HCPCS: 80053; 82607; 83735; 84100; 85025; 93005; 93010; 96365; 99284-25; A9270; J3411